=== PATIENT | male | born 1950 | race Caucasian/White ===

== ENCOUNTER 2016-08-25 07:21 | Day surgery (SDC) | payer OTHER ==
[~2016-08-25] VITALS: Ht 185.4 cm; Wt 88.9 kg
[2016-08-25] VITALS (15 sets, daily range): BP systolic 113–157; BP diastolic 63–80; PULSE 56–73; RESP 13–22; TEMP 97.7–97.9; O2SAT 94–100; Ht 185.4 cm; Wt 88.9 kg
[~2016-08-25 07:21] MED LIST: LIDOCAINE 1% (10mg/ml) 2ml SDV INJ ONE; LR 1,000 ML IV SCH; NITR0.4T39 SL; OMEP20CA10 PO; SUCR1ORA3 PO; TAMS0.4C47 PO
--- OUTSIDE RECORDS SUMMARY | 2016-08-25 07:25 | XMS REPORT | Summary of Care ---
Author Author Shadi Keene M.D. Organization Unknown Address [address] [place] [address] KENNY Roman [address] Phone Unavailable Care Team Providers Care Commercial Internship Name Role Phone Shadi Keene M.D. 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 * Refills: 0 * Started 25-Mar-2015 ActiveProtonix 40 MG Oral Packet * Refills: 0 * Started 25-Mar-2015 Active Allergies and Adverse Reactions Name Dates Details No Known Drug Allergies Status: Active Past Medical History Name Dates Details H/O mixed hyperlipidemia (V12.29, Z86.39) Status: Resolved History of allergic rhinitis (V12.69, Z87.09) Status: Resolved History of arthritis (V13.4, Z87.39) Status: Resolved History of colonic polyps (V12.72, Z86.010) Status: Resolved History of Former very heavy cigarette smoker (more than 40 per day) (V15.82, Z87.891) Status: Resolved History of Incomplete bladder emptying (788.21, R33.9) Status: Resolved History of Leaky 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.3, 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) Status: Resolved History of Lung nodule seen on imaging study (793.11, R91.1) Status: Resolved History of migraine (V12.49, Z86.69) Status: Resolved History of peptic ulcer (V12.71, Z87.11) Status: Resolved History of seasonal allergies (V15.09, Z88.9) Status: Resolved Procedures Procedure Dates Details History of Arthroscopy Knee History of Colonoscopy (Fiberoptic) History of Fiberoptic Examinations Gastroscopy History of Elbow Arthroplasty With Implant And Ligament Reconstruction History of Arthrotomy Of Knee With Open Meniscus Repair History of Cystoscopy With Resection Of Tumor History of Bladder Injection Of Cancer Treatment History of Transurethral Resection Of Prostate (TURP) History of Biopsy Of The Prostate Needle Procedures not documented Immunization Name Dates Details Immunizations not documented Family History Unknown Family Member* Name Dates Details Family history of stroke (V17.1, Z82.3) Comments: Family History Status: Active Family history of Prostate cancer (185, C61) Comments: Family History Status: Active Family history of malignant neoplasm of breast (V16.3, Z80.3) Comments: Family History Status: Active Family history of Ovarian cancer (183.0, C56.9) Comments: Family History Status: Active Family history of diabetes mellitus (V18.0, Z83.3) Comments: Family History Status: Active Family history of myocardial infarction (V17.3, Z82.49) Comments: Family History Status: Active Family history of alcoholism (V17.0, Z81.1) Comments: Family History Status: Active great grandfather* Name Dates Details Family history of malignant neoplasm of prostate (V16.42, Z80.42) Status: Active Mother* Name Dates Details Family history of Coronary heart disease (414.00, I25.10) Status: Active Family history of malignant neoplasm of cervix (V16.49, Z80.49) Status: Active Family history of cerebrovascular accident (CVA) (V17.1, Z82.3) Status: Active Father* Name Dates Details Family history of diabetes mellitus (V18.0, Z83.3) Status: Active Family history of myocardial infarction (V17.3, Z82.49) Status: Active Family history of alcoholism (V17.0, Z81.1) Status: Active Family history of Coronary heart disease (414.00, I25.10) Status: Active Family history of malignant neoplasm of prostate (V16.42, Z80.42) Status: Active Family history of chronic obstructive pulmonary disease (V17.6, Z82.5) Status: Active Family history of cerebrovascular accident (CVA) (V17.1, Z82.3) Status: Active Family history of asthma (V17.5, Z82.5) Status: Active Grandfather* Name Dates Details Family history of malignant neoplasm of prostate (V16.42, Z80.42) Status: Active Social History Name Dates Details Smoking Status* Never smoker Vital Signs Date Test Result Details 16-Apr-2015 16:07 BP Systolic 145 mm[Hg] Status: BP Diastolic 91 mm[Hg] Status: Heart Rate 106 /min Status: Height 73 in Status: Weight 195 lb Status: Body Mass Index Calculated 25.73 kg/m2 Status: Body Surface Area Calculated 2.13 m2 Status: Results Date Description Value Details 16-Apr-2015 18:21 CYTOLOGY - URINE 4444 CYTOLOGY Specimen referred to [facility]. Report to follow. (Better) Plan of Care Planned Observations* Name Dates Details Planned Goals not documented Goal Planned Encounters* Appointment; Provider: Shadi Keene On 30-Jul-2015 16:00 Instructions * Instructions not documented Encounters Appointment; Shadi Keene Encounter Diagnosis: Problem not documented On 16-Apr-2015 16:00 Appointment; Tanner Craft Encounter Diagnosis: Problem not documented On 09:15
--- OUTSIDE RECORDS SUMMARY | 2016-08-25 07:25 | XMS REPORT | Summary of Care ---
Author Author Shadi Keene M.D. Organization Unknown Address [address] [place] [address] K[place] Roman [address] Phone Unavailable Care Team Providers Care Hedge Fund Principal Name Role Phone Shadi Keene M.D. Unavailable [...] m2 Status: Results Date Description Value Details Results not documented Plan of Care Planned Observations* Name Dates Details Planned Goals not documented Goal Planned Encounters* Appointment; Provider: Shadi Keene On 30-Jul-2015 16:00 Instructions * Instructions not documented Encounters Appointment; Shadi Keene Encounter Diagnosis: Problem not documented On 16-Apr-2015 16:00 Appointment; Tanner Craft Encounter Diagnosis: Problem not documented On 09:15
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
--- OUTSIDE RECORDS SUMMARY | 2016-08-25 07:25 | XMS REPORT | Summary of Care ---
Author Author Shadi Keene M.D. Organization Unknown Address [address] [place] [address] K[place] Roman [address] Phone Unavailable Care Team Providers Care Rpg Programmer Name Role Phone Shadi Keene M.D. Unavailable Unavailable Chaim Ruelas Unavailable Unavailable Unavailable Unavailable Functional Status Name Dates Details Functional status health issues are not documented Status: Name Dates Details Cognitive status health issues are not documented Status: Problems Name Dates Details Contact dermatitis due to plant (692.6, L25.5) Status: Active Pruritic dermatitis (698.9, L29.9) Status: Active History of bladder cancer (V10.51, Z85.51) Status: Active Prophylactic antibiotic (V58.62, Z79.2) Status: Active Bladder cancer screening (V76.3, Z12.6) Status: Active History of bladder cancer (V10.51, Z85.51) Status: Active 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 Start 25-Mar-2015 Active Tamsulosin HCl - 0.4 MG Oral Capsule TAKE 1 TABLET BY MOUTH DAILY * Quantity: 90 Refills: 3 Shadi Keene M.D. Start 25-Mar-2015 Active Protonix 40 MG Oral Packet as needed * Refills: 0 * Start 25-Mar-2015 Active Sulfamethoxazole-Trimethoprim 800-160 MG Oral Tablet 1 tablet twice daily starting two days prior to procedure with Dr. Keene * Quantity: 14 Refills: 0 Shadi Keene M.D. Start 24-Mar-2016 End 06-Apr-2016 Active Allergies and Adverse Reactions Name Dates Details No Known Drug Allergies (Allergy) Status: Active Past Medical History Name Dates [...] Dates Details Immunizations not documented Family History Name Dates Details Family history of stroke [...] (V17.0, Z81.1) Comments: Family History Status: Active Name Dates Details Family history of malignant neoplasm of prostate (V16.42, Z80.42) Status: Active Name Dates Details Family history of Coronary heart disease (414.00, I25.10) Status: Active Family history of malignant neoplasm of cervix (V16.49, Z80.49) Status: Active Family history of cerebrovascular accident (CVA) (V17.1, Z82.3) Status: Active Name Dates Details Family history of diabetes [...] history of asthma (V17.5, Z82.5) Status: Active Name Dates Details Family history of malignant neoplasm of prostate (V16.42, Z80.42) Status: Active Social History Name Dates Details - Status: Name Dates Details Never smoker Vital Signs Date Test Result Details 24-Mar-2016 11:40 BP Systolic 149 mm[Hg] Status: Comments: Location: ; Position: BP Diastolic 100 mm[Hg] Status: Comments: Location: ; Position: Heart Rate 68 /min Status: Comments: Location: ; Weight 195 lb Status: Body Mass Index Calculated 25.73 kg/m2 Status: Body Surface Area Calculated 2.13 m2 Status: Results Date Description Value Details Results not documented Plan of Care Name Dates Details Planned Observations Planned Goals not documented Planned Encounters Appointment; Provider: Shadi Keene M.D. On 30-Jun-2016 16:00 Appointment; Provider: Shadi Keene M.D. On 02-Apr-2016 10:45 Interventions Provided Medication Changes* Sulfamethoxazole-Trimethoprim 800-160 MG Oral Tablet - Start Instructions Name Dates Details Instructions not documented Encounters Appointment; Shadi Keene M.D. Encounter Diagnosis: Problem not documented On 06-Feb-2016 15:15 Appointment; Shadi Keene M.D. Encounter Diagnosis: Problem not documented On 31-Dec-2015 16:00 Appointment; Shadi Keene M.D. Encounter Diagnosis: Problem not documented On 30-Jul-2015 16:00 Appointment; Shadi Keene M.D. Encounter Diagnosis: Problem not documented On 16-Apr-2015 16:00
--- OUTSIDE RECORDS SUMMARY | 2016-08-25 07:25 | XMS REPORT | Summary of Care ---
Author Author Shadi Keene M.D. Organization Unknown Address [address] [place] [address] K[place] Roman [address] Phone Unavailable Care Team Providers Care Turret Punch Operator Name Role Phone Shadi Keene M.D. Unavailable [...] Active Prophylactic antibiotic (V58.62, Z79.2) Status: Active Dysuria (788.1, R30.0) Status: Active Abscess of groin, right (682.2, L02.214) Status: Active Bladder cancer screening (V76.3, Z12.6) Status: Active History of bladder cancer (V10.51, Z85.51) Status: Active Nodular prostate with lower urinary tract symptoms (600.11, N40.3) Status: Active Prostate cancer screening (V76.44, Z12.5) Status: Active Medications Name Dates Details Omeprazole 10 MG Oral Capsule Delayed Release Shadi Keene M.D. * Start 25-Mar-2015 Active Tamsulosin HCl - 0.4 MG Oral Capsule TAKE 1 TABLET BY MOUTH DAILY * Quantity: 90 Refills: 3 Shadi Keene M.D. * Start 25-Mar-2015 Active Protonix 40 MG Oral Packet as needed * Refills: 0 * Start 25-Mar-2015 Active Allergies and Adverse Reactions Name [...] With Implant And Ligament Reconstruction History of Cystoscopy With Resection Of Tumor History of Bladder Injection Of Cancer Treatment History of Transurethral Resection Of Prostate (TURP) History of Biopsy Of The Prostate Needle History of Arthrotomy Of Knee With Open Meniscus Repair CYTOLOGY - URINE 4444 Ordered: 30-Jun-2016 PSA ( PROSTATE SPECIFIC ANTIGEN) 3100 Ordered: 30-Jun-2016 Immunization Name Dates Details Immunizations not documented [...] smoker Vital Signs Date Test Result Details No Known Vitals to report Results Date Description Value Details Results not documented Plan of Care Name Dates Details Planned Observations Planned Goals not documented Planned Encounters Appointment; Provider: Shadi Keene M.D. On 15:30 Interventions Provided Labs/Procedures/Imaging* CYTOLOGY - URINE 4444; To be Done: 30 Jun 2016 * PSA ( PROSTATE SPECIFIC ANTIGEN) 3100; To be Done: 30 Jun 2016 Instructions Name Dates Details Instructions not documented Encounters Appointment; Shadi Keene M.D. Encounter Diagnosis: Problem not documented On 05-May-2016 15:15 Appointment; Shadi Keene M.D. Encounter Diagnosis: Problem not documented On 14-Apr-2016 15:30 Appointment; Shadi Keene M.D. Encounter Diagnosis: Problem not documented On 02-Apr-2016 10:45 Appointment; Shadi Keene M.D. Encounter Diagnosis: Problem not documented On 24-Mar-2016 11:30 Appointment; Shadi Keene M.D. Encounter Diagnosis: Problem not documented On 06-Feb-2016 15:15 Appointment; Shadi Keene M.D. Encounter Diagnosis: Problem not documented On 31-Dec-2015 16:00 Appointment; Shadi Keene M.D. Encounter Diagnosis: Problem not documented On 30-Jul-2015 16:00 Appointment; Shadi Keene M.D. Encounter Diagnosis: Problem not documented On 16-Apr-2015 16:00
--- OUTSIDE RECORDS SUMMARY | 2016-08-25 07:25 | XMS REPORT | Continuity of Care Document ---
Author Author [facility] LIVE Organization [facility] LIVE Address Unknown Phone Unavailable Support Name Relationship Address Phone ALBAN SYKES MD Caregiver [address] [place] [address] [phone] MADI CARRANZA DO Caregiver [facility] [address] [place] [address] JEFF KNAPP Next Of Kin [address] [place] [address] Insurance Providers Payer Name Policy Number Subscriber Name Relationship [facility] Other [id number] Miguel Knapp 20 Self Advance Directives Directive Response Recorded Date/Time Advanced Directives Type None 12/03/13 1:30pm Ordered Resuscitation Status Full Code 12/03/13 5:31pm Problems No known problems or medical conditions. Medications Medication Dose Route Sig Days/Qty Instructions Order Date Discontinued Date Status Pantoprazole Sodium 40 Mg PO DAILY 07/17/13 Active Sucralfate 1 G PO NEEDED 07/17/13 Active Tamsulosin HCl 0.4 Mg PO DAILY 12/03/13 Active Aspirin 1 Tab PO DAILY 12/04/13 Active Diphenhydramine HCl 1 Cap PO Q4H PRN ITCHING 12/04/13 Active Social History Social History Problem Response Recorded Date/Time Smoking Status Former smoker 12/03/2013 1:31pm Chewing Tobacco Status Yes 08/07/2013 3:04pm Hx Substance Use No 12/03/2013 1:31pm Hx Alcohol Use Y BEER OCCASIONALLY 12/03/2013 1:31pm Has the pt used tobacco in the last 12 months No 12/03/2013 1:31pm Query Response Start Date Stop Date Smoking Status Never smoker Hospital Discharge Instructions No hospital discharge instructions. Plan of Care No plan of care. Functional Status No functional status results. Allergies, Adverse Reactions, Alerts Allergen Type Severity Reaction Status Last Updated No Known Allergies Active 07/17/13 Immunizations Name Given Type Hx Influenza Vaccination Y JAN 2013 Historical Hx Pneumococcal Vaccination No Historical Hx Influenza Vaccination Y JAN 2013 Historical Vital Signs Acute Vital Signs Vital Response Date/Time Temperature (Fahrenheit) 96.9 deg F (96.8 - 99.1) Temperature (Calculated Celsius) 36.13323 degrees C (36.0 - 37.3) Temperature Source Temporal Pulse Rate (adult) 48 bpm (60 - 100) Respiratory Rate 16 breaths/min (10 - 20) O2 Sat by Pulse Oximetry 100 % (90 - 100) Blood Pressure 123/69 mm Hg Blood Pressure Source Automatic Cuff Height 6 ft 1 in Weight 182 lb Body Mass Index 24.0 kg/m^2 Results Test Source Date Result Interp. Ref. Range Comments Alanine Aminotransferase (ALT/SGPT) July 21, 2013 8:01am 58 U/L N 21- 72 Albumin July 21, 2013 8:01am 4.3 G/DL N 3.5-5.0 Albumin/Globulin Ratio July 21, 2013 8:01am 1.5 RATIO N 1.1-2.2 Alkaline Phosphatase July 21, 2013 8:01am 93 U/L N 38-126 Anion Gap December 04, 2013 6:15am 12 MEQ/L N 5-15 Aspartate Amino Transf (AST/SGOT) July 21, 2013 8:01am 34 U/L N 17-59 BUN/Creatinine Ratio December 04, 2013 6:15am 12 RATIO N 6-26 Basophils # (Auto) December 04, 2013 6:15am 0.0 T/MM3 N 0-0.2 Basophils (%) (Auto) December 04, 2013 6:15am 0.5 % N 0-2 Blood Urea Nitrogen December 04, 2013 6:15am 12.0 MG/DL N 9-20 Calcium Level December 04, 2013 6:15am 9.2 MG/DL N 8.4-10.2 Calculated Osmolality December 04, 2013 6:15am 279 MOSM/KG N 261-280 Carbon Dioxide Level December 04, 2013 6:15am 29 MEQ/L N 22-30 Chemistry Specimen Hemolysis December 04, 2013 6:15am < 15 0-25 0-25: No Hemolysis.26-70: Slight Hemolysis - can falsely elevate K and Urine Protein. 71-285: Moderate Hemolysis - can falsely elevate K, Troponin I, CA 19-9, PTH, CSF GLucose, and Urine Protein, and can falsely decrease Phenytoin. 286-999: Gross Hemolysis - can falsely elevate K, Troponin I, CA 19-9, PTH, CSF Glucose, and Urine Protine, and can falsely decrease Phenytoin. Recommend specimen recollection. Chloride Level December 04, 2013 6:15am 104 MEQ/L N 98-107 Cholesterol Level July 21, 2013 8:01am 198 MG/DL N 132-199 Cholesterol/HDL Ratio July 21, 2013 8:01am 4.7 RATIO N 0-5.0 Creatinine December 04, 2013 6:15am 1.0 MG/DL N 0.8-1.5 Eosinophils # (Auto) December 04, 2013 6:15am 0.5 T/MM3 N 0-0.5 Eosinophils (%) (Auto) December 04, 2013 6:15am 6.5 % H 0-4 Free Thyroxine July 21, 2013 8:01am 0.92 NG/DL N 0.78-2.19 Globulin July 21, 2013 8:01am 2.8 G/DL N 2.4-3.6 Glomerular Filtration Rate Calc December 04, 2013 6:15am 76 - Glucose Level December 04, 2013 6:15am 91 MG/DL N 75-110 HDL Cholesterol Direct July 21, 2013 8:01am 42 MG/DL N 40-60 Hematocrit December 04, 2013 6:15am 48.1 % N 41-53 Hemoglobin December 04, 2013 6:15am 16.3 GM/DL N 13.5-17.5 Icterus Index December 04, 2013 6:15am < 2 0-7 Immature Granulocyte # (Auto) December 04, 2013 6:15am 0.01 T/MM3 N 0.00- 0.03 Immature Granulocyte % (Auto) December 04, 2013 6:15am 0.1 % N 0.0-0.5 LDL Cholesterol, Calculated July 21, 2013 8:01am 110.0 N 66-159 Lab Scanned Report July 21, 2013 9:54pm LAB TEST FORM REQUEST [id number] - Lymphocytes # (Auto) December 04, 2013 6:15am 2.2 T/MM3 N 1-4.8 Lymphocytes (%) (Auto) December 04, 2013 6:15am 29.6 % N 23-45 Mean Corpuscular Hemoglobin December 04, 2013 6:15am 31.2 UUG N 26-34 Mean Corpuscular Hemoglobin Concent December 04, 2013 6:15am 33.9 GM/DL N 31-37 Mean Corpuscular Volume December 04, 2013 6:15am 92.1 UM3 N 80-100 Mean Platelet Volume December 04, 2013 6:15am 10.2 UM3 N 9.4-12.4 Monocytes # (Auto) December 04, 2013 6:15am 0.5 T/MM3 N 0-0.8 Monocytes (%) (Auto) December 04, 2013 6:15am 7.2 % N 0-9.0 Neutrophils # (Auto) December 04, 2013 6:15am 4.1 T/MM3 N 1.8-7.7 Neutrophils (%) (Auto) December 04, 2013 6:15am 56.1 % N 33-66 Platelet Count December 04, 2013 6:15am 261 T/MM3 N 130-400 Potassium Level December 04, 2013 6:15am 4.1 MEQ/L N 3.6-5 Prostate Specific Antigen Screen July 21, 2013 8:01am 1.20 NG/ML N 0- 4.0 RDW Standard Deviation December 04, 2013 6:15am 43.3 FL N 36.9-50.2 Red Blood Count December 04, 2013 6:15am 5.22 M/MM3 N 4.50-5.90 Sodium Level December 04, 2013 6:15am 145 MEQ/L H 134-144 Thyroid Stimulating Hormone (TSH) July 21, 2013 8:01am 1.21 MIU/L N 0.47-4.68 Total Bilirubin July 21, 2013 8:01am 0.60 MG/DL N 0.20-1.30 Total Protein July 21, 2013 8:01am 7.1 G/DL N 6.3-8.2 Triglycerides Level July 21, 2013 8:01am 230 MG/DL H 40-160 Troponin I July 19, 2013 5:45pm < 0.012 ng/ml 0-0.12 Turbidity December 04, 2013 6:15am < 20 0-20 Urine Bacteria July 21, 2013 8:01am 1+ H - Urine Bilirubin July 21, 2013 8:01am Negative - Urine Blood July 21, 2013 8:01am Trace-lysed H - Urine Collection Type July 21, 2013 8:01am Cleancatch-midstream - Urine Color July 21, 2013 8:01am Yellow - Urine Culture Indicated July 21, 2013 8:01am Cult not indicated - Urine Glucose (UA) July 21, 2013 8:01am Negative - Urine Ketones July 21, 2013 8:01am Negative - Urine Leukocyte Esterase July 21, 2013 8:01am Negative - Urine Mucus July 21, 2013 8:01am Present - Urine Nitrite July 21, 2013 8:01am Negative - Urine Protein July 21, 2013 8:01am Negative - Urine RBC July 21, 2013 8:01am 1-3 /HPF - Urine Specific [place] July 21, 2013 8:01am >=1.030 H - Urine Squamous Epithelial Cells July 21, 2013 8:01am None seen - Urine Turbidity July 21, 2013 8:01am Clear - Urine Urobilinogen July 21, 2013 8:01am 0.2 EU/DL - Urine WBC July 21, 2013 8:01am 0-1 /HPF - Urine pH July 21, 2013 8:01am 6.0 - VLDL Cholesterol July 21, 2013 8:01am 46.0 MG/DL H 0-28 White Blood Count December 04, 2013 6:15am 7.4 T/MM3 N 4.5-11.0 Name: MIGUEL KNAPP Unit #: [id number] : 1950 Sex: M Loc / Svc: SCU DOS: 12/04/13 Signed Report #: [id number] DIAGNOSTIC IMAGING REPORT TYPE OF EXAM: RF RETROGRADE PYELOGRAM BILAT. Dictated By: AFSHIN YEAGER MD INDICATION: ITS.REASON: JOHNNIE RETRO RF RETROGRADE PYELOGRAM BILAT.: Comparison: None Findings: Retrograde pyelograms show a normal right renal collecting system. No filling defects appreciated. Right ureter appears normal in course and caliber. Left ureter also appears normal. Left renal collecting system is normal and shows no filling defect or mass effect. Impression: Findings as above. . Procedures Procedure Status Date Provider(s) Cystoscopy with retrograde pyelography completed 12/04/13 ALBAN SYKES MD Encounters Encounter Location Date/Time Registered Clinic [facility] 11/28/13 7:44am
--- OUTSIDE RECORDS SUMMARY | 2016-08-25 07:25 | XMS REPORT | Summary of Care ---
Author Author Shadi Keene M.D. Organization Unknown Address [address] [place] [address] KENNY Roman [address] Phone Unavailable Care Team Providers Care Pharmacy Technician Inpatient Name Role Phone Shadi Keene M.D. Unavailable [...] of bladder cancer (V10.51, Z85.51) Status: Active Bladder cancer screening (V76.3, Z12.6) Status: Active Medications Name Dates Details Omeprazole 10 MG Oral Capsule Delayed Release Shadi Keene M.D.* Started 25-Mar-2015 ActiveTamsulosin HCl - 0.4 MG Oral Capsule TAKE 1 TABLET BY MOUTH DAILY * Refills: 0 * Started 25-Mar-2015 ActiveProtonix [...] History of Biopsy Of The Prostate Needle CYTOLOGY - URINE 4444 Ordered:30-Jul-2015 Immunization Name Dates Details Immunizations not documented [...] smoker Vital Signs Date Test Result Details 30-Jul-2015 16:07 BP Systolic 124 mm[Hg] Status: BP Diastolic 90 mm[Hg] Status: Heart Rate 86 /min Status: Height 73 in Status: Weight 192 lb Status: Body Mass Index Calculated 25.33 kg/m2 Status: Body Surface Area Calculated 2.11 m2 Status: Results Date Description Value Details Results not documented Plan of Care Planned Observations* Name Dates Details Planned Goals not documented Goal Planned Encounters* Appointment; Provider: Shadi Keene On 31-Dec-2015 16:00 Instructions * Instructions not documented Encounters Appointment; Shadi Keene Encounter Diagnosis: Problem not documented On 30-Jul-2015 16:00 Appointment; Shadi Keene Encounter Diagnosis: Problem not documented On 16-Apr-2015 16:00 Appointment; Tannre Craft Encounter Diagnosis: Problem not documented On 09:15
--- OUTSIDE RECORDS SUMMARY | 2016-08-25 07:25 | XMS REPORT | Summary of Care ---
Author Author Shadi Keene M.D. Organization Unknown Address [address] [place] [address] KENNY Roman [address] Phone Unavailable Care Team Providers Care Senior Sales Executive Name Role Phone Shadi Keene M.D. Unavailable [...]
--- OUTSIDE RECORDS SUMMARY | 2016-08-25 07:25 | XMS REPORT | Summary of Care ---
Author Author Shadi Keene M.D. Organization Unknown Address [address] [place] [address] KENNY Roman [address] Phone Unavailable Care Team Providers Care Arboriculture Instructor Name Role Phone Shadi Keene M.D. Unavailable [...] Z12.5) Status: Active Medications Name Dates Details Tamsulosin HCl - 0.4 MG Oral Capsule TAKE 1 TABLET BY MOUTH DAILY Quantity: 90 Shadi Keene M.D. * Start 25-Mar-2015 Active Protonix 40 MG Oral Packet as needed * Refills: 0 * Start 25-Mar-2015 Active Omeprazole 10 MG Oral Capsule Delayed Release * Refills: 0 Shadi Keene M.D. * Start 25-Mar-2015 Active Allergies and Adverse [...] Arthrotomy Of Knee With Open Meniscus Repair Procedures not documented Immunization Name Dates Details [...] (V17.0, Z81.1) Comments: Family History Status: Active Family history of myocardial infarction (V17.3, Z82.49) Comments: Family History Status: Active Name Dates [...] (V18.0, Z83.3) Status: Active Family history of alcoholism (V17.0, Z81.1) Status: Active Family history of malignant neoplasm of prostate (V16.42, Z80.42) Status: Active Family history of myocardial infarction (V17.3, Z82.49) Status: Active Family history of Coronary heart disease (414.00, I25.10) Status: Active Family history of chronic obstructive [...] to report Results Date Description Value Details 01-Jul-2016 07:34 CYTOLOGY - URINE 4444 CYTOLOGY Specimen referred to [facility]. Report to follow. 11:40 PSA ( PROSTATE SPECIFIC ANTIGEN) 3100 PROSTATE SPECIFIC ANTIGEN 1.130 ng/mL Range: 0.000-4.000 Plan of Care Name Dates Details Planned Observations Planned Goals not documented Planned Encounters Appointment; Provider: Shadi Keene M.D. On 15:30 Instructions Name Dates Details Instructions not documented Encounters Appointment; Shadi Keene M.D. Encounter Diagnosis: Problem not documented On 30-Jun-2016 16:00 Appointment; Shadi Keene M.D. Encounter Diagnosis: [...]
--- OUTSIDE RECORDS SUMMARY | 2016-08-25 07:25 | XMS REPORT | Summary of Care ---
Author Author Shadi Keene M.D. Organization Unknown Address [address] [place] [address] KENNY Roman [address] Phone Unavailable Care Team Providers Care Small Stock Facer Name Role Phone Shadi Keene M.D. Unavailable [...] * Instructions not documented Encounters Appointment; Shadi Keeen Encounter Diagnosis: Problem not documented On 30-Jul-2015 16:00 Appointment; Shadi Keene Encounter Diagnosis: Problem not documented On 16-Apr-2015 16:00 Appointment; Tanner Craft Encounter Diagnosis: Problem not documented On 09:15
--- OUTSIDE RECORDS SUMMARY | 2016-08-25 07:26 | XMS REPORT | Summary of Care ---
Author Author Shadi Keene M.D. Organization Unknown Address [address] [place] [address] KENNY Roman [address] Phone Unavailable Care Team Providers Care Front End Alignment Specialist Name Role Phone Shadi Keene M.D. Unavailable [...] Arthrotomy Of Knee With Open Meniscus Repair PSA ( PROSTATE SPECIFIC ANTIGEN) 3100 Ordered: [...] Keene M.D. On 15:30 Interventions Provided Labs/Procedures/Imaging* PSA ( PROSTATE SPECIFIC ANTIGEN) 3100; To be Done: 30 Jun 2016 Instructions Name Dates Details Instructions not documented Encounters Appointment; Shadi Keene M.D. Encounter Diagnosis: Problem not documented On 05-May-2016 15:15 Appointment; Shdai Keene M.D. Encounter Diagnosis: Problem not documented [...]
--- OUTSIDE RECORDS SUMMARY | 2016-08-25 07:26 | XMS REPORT | Summary of Care ---
Author Author Shadi Keene M.D. Organization Unknown Address [address] [place] [address] KENNY Roman [address] Phone Unavailable Care Team Providers Care Puttier Name Role Phone Shadi Keene M.D. Unavailable [...] urinary tract symptoms (600.11, N40.3) Status: Active Prophylactic antibiotic (V58.62, Z79.2) Status: Active Medications Name Dates Details Omeprazole [...] 16:00 Appointment; Provider: Shadi Keene M.D. On 14-Apr-2016 15:30 Instructions Name Dates Details Instructions not [...]
--- OUTSIDE RECORDS SUMMARY | 2016-08-25 07:26 | XMS REPORT | Summary of Care ---
Author Author Shadi Keene M.D. Organization Unknown Address [address] [place] [address] KENNY Roman [address] Phone Unavailable Care Team Providers Care Wafer Production Lead Worker Name Role Phone Shadi Keene M.D. Unavailable [...] The Prostate Needle CYTOLOGY - URINE 4444 Ordered:16-Apr-2015 Immunization Name Dates Details Immunizations not documented [...]
--- OUTSIDE RECORDS SUMMARY | 2016-08-25 07:26 | XMS REPORT | Continuity of Care Document ---
Author Author [facility] LIVE Organization [facility] Address Unknown Phone Unavailable Support Name Relationship Address Phone MADI CARRANZA DO Caregiver [facility] [address] [place] [place], [place] [id number] HUMBERTO BAILEY MD Caregiver [address] [place] [phone] JEFF KNAPP Next Of Kin [address] [place] [address] Insurance Providers Payer Name Policy Number Subscriber Name Relationship [facility] Other [id number] Miguel Knapp 20 Self Advance Directives Directive Response Recorded Date/Time Advanced Directives Type None 12/05/13 1:50am Problems Medical Problems Problem Onset Date Status Acute urinary retention Unknown Active History of bladder surgery Unknown Active Acute urinary retention Unknown Active Medications Medication Dose Route Sig Days/Qty Instructions Order Date Discontinued Date Status Pantoprazole Sodium 40 Mg PO DAILY 07/17/13 Active Sucralfate 1 G PO NEEDED 07/17/13 Active Tamsulosin HCl 0.4 Mg PO DAILY 12/03/13 Active Aspirin 1 Tab PO DAILY 12/04/13 Active Social History Social History Problem Response Recorded Date/Time Smoking Status Unknown if ever smoked 12/05/2013 2:18am Chewing Tobacco Status Yes 08/07/2013 3:04pm Hx Substance Use No 12/05/2013 2:18am Hx Alcohol Use Y BEER OCCASIONALLY 12/05/2013 2:18am Has the pt used tobacco in the last 12 months No 12/03/2013 1:31pm Query Response Start Date Stop Date Smoking Status Never smoker Hospital Discharge Instructions No hospital discharge instructions. Plan of Care No plan of care. Functional Status Query Response Date Recorded Physical Hygiene Self December 05, 2013 2:18am Disabilities None December 05, 2013 2:18am Devices Used None December 05, 2013 2:18am Dressing Self December 05, 2013 2:18am Ambulation Self December 05, 2013 2:18am Diet Self December 05, 2013 2:18am Mental Status Alert Oriented December 05, 2013 2:18am Disabilities None December 05, 2013 2:18am Devices Used None December 05, 2013 2:18am Physical Hygiene Self December 05, 2013 2:18am Dressing Self December 05, 2013 2:18am Ambulation Self December 05, 2013 2:18am Diet Self December 05, 2013 2:18am Allergies, Adverse Reactions, Alerts Allergen Type Severity Reaction Status Last Updated No Known Allergies Active 12/05/13 Immunizations Name Given Type Hx Influenza Vaccination Y JAN 2013 Historical Hx Pneumococcal Vaccination No Historical Hx Influenza Vaccination Y JAN 2013 Historical Vital Signs Acute Vital Signs Vital Response Date/Time Temperature (Fahrenheit) 97.6 deg F (96.8 - 99.1) Temperature (Calculated Celsius) 36.25297 degrees C (36.0 - 37.3) Pulse Rate (adult) 63 bpm (60 - 100) Respiratory Rate 18 breaths/min (10 - 20) O2 Sat by Pulse Oximetry 98 % (90 - 100) Blood Pressure 127/68 mm Hg Height 6 ft 1 in Weight 182 [...] 04, 2013 6:15am 29 MEQ/L N 22-30 Chloride Level December 04, 2013 6:15am 104 [...] 21, 2013 8:01am 2.8 G/DL N 2.4-3.6 Glucose Level December 04, 2013 6:15am 91 MG/DL N 75-110 Hematocrit December 04, 2013 6:15am 48.1 % N 41-53 Hemoglobin December 04, 2013 6:15am 16.3 GM/DL N 13.5-17.5 LDL Cholesterol, Calculated July 21, 2013 8:01am 110.0 N 66-159 Lymphocytes # (Auto) December 04, 2013 6:15am [...] 19, 2013 5:45pm < 0.012 ng/ml 0-0.12 Urine Bacteria July 21, 2013 8:01am 1+ [...] 2013 8:01am 1-3 /HPF - Urine Specific [place] July 21, 2013 8:01am >=1.030 H - [...] 04, 2013 6:15am 7.4 T/MM3 N 4.5-11.0 Chemistry Specimen Hemolysis December 04, 2013 6:15am [...] can falsely decrease Phenytoin. Recommend specimen recollection. Lab Scanned Report July 21, 2013 9:54pm LAB TEST FORM REQUEST [id number] - HDL Cholesterol Direct July 21, 2013 8:01am 42 MG/DL N 40-60 Turbidity December 04, 2013 6:15am < 20 0-20 Glomerular Filtration Rate Calc December 04, 2013 6:15am 76 - Immature Granulocyte # (Auto) December 04, 2013 6:15am 0.01 T/MM3 N 0.00- 0.03 Immature Granulocyte % (Auto) December 04, 2013 6:15am 0.1 % N 0.0-0.5 Icterus Index December 04, 2013 6:15am < 2 0-7 Name: MIGUEL KNAPP Unit #: [id number] : 1950 Sex: M Loc / Svc: SCU DOS: 12/04/13 Signed Report #: [id number] DIAGNOSTIC IMAGING REPORT TYPE OF EXAM: RF [...] ALBAN SYKES MD Encounters Encounter Location Date/Time Departed Emergency Room [facility] 12/05/13 1:35am Registered Clinic [facility] 11/28/13 7:44am Recent Diagnosis
--- OUTSIDE RECORDS SUMMARY | 2016-08-25 07:26 | XMS REPORT | Summary of Care ---
Author Author Shadi Keene M.D. Organization Unknown Address [address] [place] [address] KENNY Roman [address] Phone Unavailable Care Team Providers Care Sheepskin Pickler Name Role Phone Shadi Keene M.D. 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 * Start 25-Mar-2015 Active Tamsulosin HCl - 0.4 MG Oral Capsule TAKE 1 TABLET BY MOUTH DAILY * Quantity: 90 Refills: 3 Shadi Keene M.D. Start 25-Mar-2015 Active Protonix 40 MG Oral Packet as needed * Refills: 0 * Start 25-Mar-2015 Active Ciprofloxacin HCl - 500 MG Oral Tablet one po bid x 14 days * Quantity: 28 Refills: 0 Shadi Keene M.D. Start 14-Apr-2016 Active Allergies and Adverse Reactions Name Dates [...] smoker Vital Signs Date Test Result Details 14-Apr-2016 15:39 BP Systolic 151 mm[Hg] Status: Comments: Location: ; Position: BP Diastolic 95 mm[Hg] Status: Comments: Location: ; Position: Heart Rate 76 /min Status: Comments: Location: ; Physical Findings 16 Status: Comments: Respiration Results Date Description Value Details Results not documented Plan of Care Name Dates Details Planned Observations Planned Goals not documented Planned Encounters Appointment; Provider: Shadi Keene M.D. On 30-Jun-2016 16:00 Instructions Name Dates Details Instructions not documented [...]
--- OUTSIDE RECORDS SUMMARY | 2016-08-25 07:26 | XMS REPORT | Summary of Care ---
Author Author Shadi Keene M.D. Organization Unknown Address [address] [place] [address] KENNY Roman [address] Phone Unavailable Care Team Providers Care Binitrotoluene Operator Name Role Phone Shadi Keene M.D. [...] BY MOUTH DAILY * Refills: 0 * Start 25-Mar-2015 Active Protonix 40 MG Oral Packet * Refills: 0 * Start 25-Mar-2015 Active PredniSONE 10 MG Oral Tablet TAKE 1 TABLET NEEDED. * Refills: 0 Shadi Keene M.D. * Start 31-Dec-2015 Active Allergies and Adverse Reactions Name Dates [...] smoker Vital Signs Date Test Result Details 31-Dec-2015 16:06 BP Systolic 152 mm[Hg] Status: Comments: Location: ; Position: BP Diastolic 93 mm[Hg] Status: Comments: Location: ; Position: Heart Rate 86 /min Status: Comments: Location: ; Height 73 in Status: Weight 192 lb Status: Body Mass Index Calculated 25.33 kg/m2 Status: Body Surface Area Calculated 2.11 m2 Status: Results Date Description Value Details 31-Dec-2015 17:47 CYTOLOGY - URINE 4444 CYTOLOGY Specimen referred to [facility]. Report to follow. Plan of Care Name Dates Details Planned [...]
--- OUTSIDE RECORDS SUMMARY | 2016-08-25 07:26 | XMS REPORT | Summary of Care ---
Author Author Shadi Keene M.D. Organization Unknown Address [address] [place] [address] KENNY Roman [address] Phone Unavailable Care Team Providers Care Billing Coordinator Name Role Phone Shadi Keene M.D. Unavailable [...] m2 Status: Results Date Description Value Details 30-Jul-2015 18:14 CYTOLOGY - URINE 4444 CYTOLOGY Specimen referred to [facility]. Report to follow. (Better) Plan of [...]
--- OUTSIDE RECORDS SUMMARY | 2016-08-25 07:26 | XMS REPORT | Summary of Care ---
Author Author Shadi Keene M.D. Organization Unknown Address [address] [place] [address] KENNY Roman [address] Phone Unavailable Care Team Providers Care Operations Officer Afloat Name Role Phone Shadi Keene M.D. Unavailable [...] Provider: Shadi Keene M.D. On 30-Jun-2016 16:00 Interventions Provided Medication Changes* Ciprofloxacin HCl - 500 MG Oral Tablet - Completed Instructions Name Dates Details Instructions not documented Encounters Appointment; Shadi Keene M.D. Encounter Diagnosis: Problem not documented On 30-Jul-2015 16:00 Appointment; Shadi Keene M.D. Encounter Diagnosis: Problem not documented On 16-Apr-2015 16:00
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
--- OUTSIDE RECORDS SUMMARY | 2016-08-25 07:26 | XMS REPORT | Summary of Care ---
Author Author Shadi Keene M.D. Organization Unknown Address [address] [place] [address] KENNY Roman [id number] Phone Unavailable Care Team Providers Care Physician Practice Coordinator Name Role Phone Shadi Keene M.D. 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 * Start 14-Apr-2016 Active Allergies and Adverse Reactions [...] ; Physical Findings 16 Status: Comments: Respiration 24-Mar-2016 11:40 BP Systolic 149 mm[Hg] Status: [...] 16:00 Appointment; Provider: Shadi Keene M.D. On 05-May-2016 15:15 Interventions Provided Medication Changes* Ciprofloxacin HCl - 500 MG Oral Tablet - Start Instructions Name [...]
[2016-08-25] MEDS ORDERED: MELO-273 PO (07:37)
[2016-08-25] MEDS ORDERED: SALINE FLUSH 10ml SYRINGE ONE (08:53)
[2016-08-25] MEDS ORDERED: FENTANYL 100mcg/2ml INJECTION ONE (08:53)
[2016-08-25] MEDS ORDERED: MIDAZOLAM 5mg/5ml INJECTION ONE (08:53)
[2016-08-25] MEDS ORDERED: FENTANYL 100mcg/2ml INJECTION IV PRN (09:24)
[2016-08-25] MEDS ORDERED: MIDAZOLAM 5mg/5ml INJECTION IV PRN (09:24)
--- NOTE | 2016-08-25 14:42 | OPNOTEF ---
DATE OF PROCEDURE: 08/25/2016 PHYSICIAN: Johnathan Brumfield DO PROCEDURE: Colonoscopy. INDICATION FOR PROCEDURE History of colon polyps. ASA CLASSIFICATION: 2 DESCRIPTION OF PROCEDURE Consent was signed and on the chart. Routine monitoring with ECG, continuous oximetry and noninvasive blood pressure was performed throughout the procedure and found to be within normal limits. IV sedation was performed with a total of 7 mg of Versed and 70 mcg of fentanyl. Prior to the procedure, the patient was brought to the endoscopy lab where a brief review of his medical history and physical exam was performed. The procedure was described to him and he was agreeable to continue. All questions were answered. He was given IV sedation and placed in left lateral decubitus position. A digital rectal exam revealed a normal size and contour prostate. No masses. The colonoscope was introduced through the anal verge and advanced to the cecum. Upon reaching the cecum, careful inspection of the mucosa was performed and from the cecum through the ascending colon there were no polyps, masses, lesions or diverticula. In the transverse colon there was one small polyp photographed and removed by cold forceps biopsy. The remainder of his colon was free of pathology. He tolerated the procedure well. There were no complications. IMPRESSION Polyp removed from transverse colon. Otherwise normal colon. RECOMMENDATION 1. Review the path report. 2. Repeat as indicated. ZED
== END 2016-08-25 11:06 | disposition home or self-care (01) ==
LOC: NSC 07:21
PROVIDERS: ATTEND Internal Medicine
DX: Z12.11 Encounter for screening for malignant neoplasm of colon (principal); D12.3 Benign neoplasm of transverse colon; Z86.010 Personal history of colon polyps; N40.0 Benign prostatic hyperplasia without lower urinary tract symptoms; K21.0 Gastro-esophageal reflux disease with esophagitis; E78.2 Mixed hyperlipidemia; J30.2 Other seasonal allergic rhinitis; Z79.1 Long term (current) use of non-steroidal anti-inflammatories (NSAID); Z79.52 Long term (current) use of systemic steroids; Z79.899 Other long term (current) drug therapy; Z87.891 Personal history of nicotine dependence
CPT/HCPCS: 45380; J2250; J3010; J7120